=== PATIENT | female | born 1985 | race Caucasian/White ===

== ENCOUNTER 2020-05-23 19:08 | Emergency (ER) | payer OTHER ==
[2020-05-23 19:13] VITALS: RESP 18
[2020-05-23] MEDS ORDERED: ORPHENADRINE 30 MG/ML 2 ML VIAL IM STA (19:24)
[2020-05-23] MEDS ORDERED: KETOROLAC 15 MG/ML 1 ML VIAL IM STA (19:24)
--- NOTE | 2020-05-23 19:26 | ED ---
Fall HPI - General Chief Complaint: Fall Stated Complaint: fall Time Seen by Provider: 05/23/20 19:14 Source: patient, RN notes reviewed, old records reviewed Mode of arrival: ambulatory - History of Present Illness Initial Comments: Patient is a 35-year-old female who presents to the emergency department today for evaluation with complaints of lower back pain after she slipped and fell on stairs. She reports that she landed with her lower back hitting the edge of the stair. She denies any head or neck pain. Denies any chest pain shortness of breath or rib pain. Denies abdominal pain. Patient reports it's painful for her to go from sitting to standing. Patient states that she's had no nausea or vomiting. She denies any peripheral paresthesias. - Related Data Home Medications Medication Instructions Recorded Confirmed Butalb/Asprin/Caff 50-325-40Mg 1 each PO Q4HR 03/17/14 07/29/15 [Fiorinal] Omeprazole [PriLOSEC] 20 mg PO AC-BID 03/17/14 07/29/15 Ondansetron [Zofran] 4 mg PO Q8HR PRN 03/17/14 07/29/15 SUMAtriptan succinate [Imitrex] 25 mg PO ONCE 03/17/14 07/29/15 Previous Rx's Medication Instructions Recorded HYDROcodone/APAP 5-325MG [[place] 5] 1 each PO Q6HR PRN #6 tab 07/29/15 Cyclobenzaprine [Flexeril] 10 mg PO TID #12 tab 05/23/20 Lidocaine [Lidoderm 5% Patch] 1 patch TRANSDERM DAILY #20 patch 05/23/20 Allergies Allergy/AdvReac Type Severity Reaction Status Date / Time No Known Allergies Allergy Verified 05/23/20 19:13 Review of Systems ROS Statement: Those systems with pertinent positive or pertinent negative responses have been documented in the HPI. ROS Other: All systems not noted in ROS Statement are negative. Past Medical History Past Medical History: Asthma, GERD/Reflux Additional Past Medical History / Comment(s): MIGRAINES, stomach ulcer History of Any Multi-Drug Resistant Organisms: None Reported Additional Past Surgical History / Comment(s): Stomach surgery Past Psychological History: No Psychological Hx Reported Past Alcohol Use History: None Reported Past Drug Use History: None Reported General Exam Limitations: no limitations General appearance: alert, in no apparent distress Head exam: Present: atraumatic Eye exam: Present: normal appearance, PERRL, EOMI. Absent: scleral icterus, conjunctival injection, periorbital swelling ENT exam: Present: normal exam, mucous membranes moist Neck exam: Present: normal inspection. Absent: tenderness, meningismus, lymphadenopathy Respiratory exam: Present: normal lung sounds bilaterally. Absent: respiratory distress, wheezes, rales, rhonchi, stridor Cardiovascular Exam: Present: regular rate, normal rhythm, normal heart sounds. Absent: systolic murmur, diastolic murmur, rubs, gallop, clicks GI/Abdominal exam: Present: soft, normal bowel sounds. Absent: distended, tenderness, guarding, rebound, rigid Extremities exam: Present: normal inspection, full ROM, normal capillary refill. Absent: tenderness, pedal edema, joint swelling, calf tenderness Back exam: Present: normal inspection, vertebral tenderness (Lumbar contusion over L2) Neurological exam: Present: alert, oriented X3, CN II-XII intact Psychiatric exam: Present: normal affect, normal mood Skin exam: Present: warm, dry, intact, normal color. Absent: rash Course Vital Signs 05/23/20 19:10 Temperature 97.9 F Pulse Rate 92 Respiratory 18 Rate Blood Pressure 109/73 O2 Sat by Pulse 99 Oximetry Medical Decision Making - Medical Decision Making 35-year-old female presents emergency department today for evaluation with complaints of lower back pain after she found the stairs. She reports that she landed against the stair hitting her lower back. Denies any abdominal pain and had or neck injury. Patient has contusion of lower back L2. X-rays today show no evidence of acute process. was given IM Toradol and Norflex does report some symptoms Patient was given lidocaine patch. She is on Suboxone receive narcotics. Advised Patient to follow up with anti-inflammatory medications and following up with her primary care doctor is symptoms continue persist for any worsening signs or symptoms occur over the next few days to return to ED. - Radiology Data Radiology results: report reviewed Lumbar spine x-rays negative for any acute fracture. Disposition Clinical Impression: Back contusion, Lumbar back pain Disposition: HOME SELF-CARE Condition: Good Instructions (If sedation given, give patient instructions): Acute Low Back Pain (ED) Additional Instructions: Patient advised a take anti-inflammatory medication for pain like motrin and tylenol. Use muscle relaxers as well as apply the lidocaine patches for pain relief. Return to emergency department if any alarming signs or symptoms occur. Follow-up with your primary care doctor. Prescriptions: Cyclobenzaprine [Flexeril] 10 mg PO TID #12 tab Lidocaine [Lidoderm 5% Patch] 1 patch TRANSDERM DAILY #20 patch Is patient prescribed a controlled substance at d/c from ED?: No Referrals: Aba Smith MD [Primary Care Provider] - 1-2 days Time of Disposition: 20:19
--- NOTE | 2020-05-23 20:00 | XR ---
Result: History: Pain status post fall. Comparison: None available. Technique: 3 views of the lumbar spine. Findings: The bone mineralization is normal. Images of the lumbar spine demonstrate 5 lumbar-type vertebrae. There is no acute fracture or sublux ation. The vertebral body heights are preserved throughout the imaged lumbar spine. The vertebral e lements are in anatomic alignment. The disc heights are maintained. Impression: No acute osseous abnormality.
[2020-05-23] MEDS ORDERED: LIDOCAINE 5% PATCH TOPICAL STA (20:04)
[2020-05-23 20:37] VITALS: BP 117/70; PULSE 74; TEMP 98.3
== END 2020-05-23 20:37 | disposition home or self-care (01) ==
LOC: EC 19:08
DX: S30.0XXA Contusion of lower back and pelvis, initial encounter (principal); K21.9 Gastro-esophageal reflux disease without esophagitis; G43.909 Migraine, unspecified, not intractable, without status migrainosus; Z79.82 Long term (current) use of aspirin; Z79.899 Other long term (current) drug therapy; W10.9XXA Fall (on) (from) unspecified stairs and steps, initial encounter; Y92.89 Other specified places as the place of occurrence of the external cause
CPT/HCPCS: 72100; 99284; 96372 ×2; J2360; J1885